=== PATIENT | female | born 1980 | race Caucasian/White ===

== ENCOUNTER 2020-03-26 22:14 | Emergency (ER) | payer OTHER ==
[~2020-03-26] VITALS: Ht 177.8 cm; Wt 89.4 kg
[~2020-03-26 22:14] MED LIST: HYDR1TAB94 PO; TAMS.4ER PO
== END 2020-03-27 01:15 | disposition home or self-care (01) ==
LOC: ER 22:14
DX: U07.1 COVID-19 (principal); Z91.09 Other allergy status, other than to drugs and biological substances; Z88.8 Allergy status to other drugs, medicaments and biological substances
CPT/HCPCS: 99284; U0002

== ENCOUNTER → 2022-07-29 | Outpatient (CLI) | payer SELFPAY ==
[2022-07-29 13:37] LABS: Source, Urine Clean Catch
[2022-07-29 16:03] LABS: Bilirubin, Urine Neg (Neg); Blood, Urine Neg (Neg); Glucose Qualitative, Urine Neg (Neg); Ketones, Urine Neg (Neg); Leukocyte Esterase, Urine Neg (Neg); Nitrite, Urine Neg (Neg); Protein, Urine 2+ (Neg); Urobilinogen, Urine NORM (Normal); pH, Urine 6.5 (5.0-8.0)
[2022-07-29 16:17] LABS: Appearance, Urine Hazy (Clear); Color, Urine Yellow (P-Yellow)
[2022-07-29 16:19] LABS: Amorphous Light (0-Heavy); Bacteria Many /hpf; Hyaline Casts 0-2 /lpf (0-2); Mucus Light (0-Heavy); Red Blood Cells, Urine 0-2 /hpf (0-2); White Blood Cells, Urine 0-2 /hpf (0-5)
[2022-07-29 16:20] LABS: Calcium Oxalate Crystals Rare /hpf; Squamous Epithelial Cells Mod /hpf (Few)
[2022-07-31 12:10] LABS: HPV 16 Negative (Negative); HPV 18 Negative (Negative); HPV OTHER HR TYPES Negative (Negative)
== END | disposition home or self-care (01) ==
LOC: LAB SHORT 09:30
PROVIDERS: Obstetrics & Gynecology
DX: Z01.419 Encounter for gynecological examination (general) (routine) without abnormal findings (principal); N23 Unspecified renal colic
CPT/HCPCS: 81001; 87086; 87624; G0145

== ENCOUNTER → 2024-01-24 | Outpatient (CLI) | payer OTHER ==
[~2024-01-24] MED LIST changes: +ASPI81CH PO; +ATOR80 PO; +CLOP75 PO; +LISI20 PO
[2024-01-25 12:54] LABS: Stool Occult Bld Immuno 1 Negative (NEGATIVE)
== END ==
LOC: LAB SHORT 20:42 → LAB 20:42
PROVIDERS: Family Medicine
DX: D64.9 Anemia, unspecified (principal); E61.1 Iron deficiency; R70.1 Abnormal plasma viscosity
CPT/HCPCS: G0328

== ENCOUNTER → 2024-03-02 | Outpatient (CLI) | payer OTHER ==
[2024-03-02 12:59] LABS: Protein, Urine Random 15.3 mg/dL (0.0-11.9)
[2024-03-02 13:00] LABS: Protein/Creat Ratio, Ur Random 0.1
== END ==
LOC: LAB SHORT 10:51 → LAB 10:51
PROVIDERS: Family Medicine
DX: I10 Essential (primary) hypertension (principal)
CPT/HCPCS: 82570; 84156

== ENCOUNTER → 2024-04-20 | Outpatient (CLI) | payer OTHER ==
[2024-04-20 15:23] LABS: Bun/Creatinine Ratio 20.5 (12.0-20.0); Calcium, Blood 9.3 mg/dL (8.5-10.1); Creatinine, Blood 0.83 mg/dL (0.40-1.00); Potassium, Blood 3.9 mmol/L (3.5-5.5)
== END ==
LOC: LAB 11:34 → LAB SHORT 11:34
PROVIDERS: Family Medicine
DX: I10 Essential (primary) hypertension (principal)
CPT/HCPCS: 80048

== ENCOUNTER 2024-06-28 15:45 | Emergency (ER) | payer OTHER ==
[~2024-06-28] VITALS: Ht 177.8 cm; Wt 93.4 kg
[2024-06-28] MEDS ORDERED: WARF5 PO (18:25)
[2024-06-28] MEDS ORDERED: LOSARTAN-HCTZ1 EACH PO (18:26)
[2024-06-28 18:45] LABS: BASOPHILS ABSOLUTE AUTO 0.06 K/mm3 (0.00-0.23); BASOPHILS PERCENT AUTO 1 % (0-2); EOSINOPHILS PERCENT AUTO 1 % (0-6); Hematocrit 39.1 % (33.0-51.0); Hemoglobin 13.7 g/dL (11.5-16.0); IMMATURE GRAN ABSOLUTE AUTO 0.07 K/mm3 (0.00-0.10); IMMATURE GRAN PERCENT AUTO 1 % (0-1); LYMPHOCYTES PERCENT AUTO 30 % (21-46); MONOCYTES ABSOLUTE AUTO 0.47 K/mm3 (0.16-1.47); MONOCYTES PERCENT AUTO 6 % (4-13); Mean Corpuscular HGB 30.8 pg (26.0-34.0); Mean Corpuscular Volume 88 fL (80-100); Mean Platelet Volume 9.2 fL (9.1-12.4); NEUTROPHILS ABSOLUTE AUTO 4.77 K/mm3 (1.96-9.15); NEUTROPHILS PERCENT AUTO 61 % (41-73); Platelet Count 343 K/mm3 (150-400); RDW Coefficient Variation 13.4 % (11.7-14.2); RDW Standard Deviation 43.3 fL (35.1-46.3); Red Blood Cell Count 4.45 M/mm3 (3.80-5.20); White Blood Cell Count 7.77 K/mm3 (4.00-11.30)
[2024-06-28 19:06] LABS: Bilirubin, Total 0.5 mg/dL (0.1-1.0); Bun/Creatinine Ratio 11.4 (12.0-20.0); Calcium, Blood 9.7 mg/dL (8.5-10.1); Creatinine, Blood 1.05 mg/dL (0.40-1.00); Potassium, Blood 3.1 mmol/L (3.5-5.5)
[2024-06-28 20:00] VITALS: BP 147/92
== END 2024-06-28 20:07 | disposition home or self-care (01) ==
LOC: ER 15:45
PROVIDERS: Physician Assistant
DX: I95.9 Hypotension, unspecified (principal); Z86.73 Personal history of transient ischemic attack (TIA), and cerebral infarction without residual deficits; Z79.01 Long term (current) use of anticoagulants; Z91.048 Other nonmedicinal substance allergy status
CPT/HCPCS: 80053; 84484; 85025; 93005; 93010; 99285-25

== ENCOUNTER → 2025-06-03 | Outpatient (CLI) | payer OTHER ==
[~2025-06-03] MED LIST changes: +LOSARTAN-HCTZ1 EACH PO; +WARF5 PO
== END | disposition home or self-care (01) ==
LOC: LAB 18:15 → LAB SHORT 18:15
DX: R30.0 Dysuria (principal)
CPT/HCPCS: 87077; 87086